=== PATIENT | female | born 1985 | race Caucasian/White ===

== ENCOUNTER 2024-12-24 11:25 | Emergency (ER) | payer OTHER, SELFPAY ==
[2024-12-24 11:31] VITALS: BP 124/91
--- NOTE | 2024-12-24 12:35 | ED.GENMED ---
History of Present Illness
General
Chief Complaint: Cough
Source: patient
Exam Limitations: none
Time Seen by Provider: 12/24/24 12:12
History of Present Illness
History of Present Illness:
See MDM
Past History
Past History
ED Past Medical History: None
ED Past Surgical History: None
Social History
Tobacco: Non-smoker
Alcohol: None
Phy Exam
Physical Exam
Physical Exam:
See MDM
Course
Orders/Labs/Results
Orders:
Orders
12/24/24 12:33
Dexamethasone Pf [Decadron] 10 mg PO NOW STA
Ipratropium/Albuterol Sulfate [Duoneb] 3 ml INH R NOW STA
Vital Signs
Initial and Last Documented VS:
Initial Vital Signs
Temp Pulse Resp BP Pulse Ox
100.1 F 116 16 124/91 92
12/24/24 11:31 12/24/24 11:31 12/24/24 11:31 12/24/24 11:31 12/24/24 11:31
Last Documented Vital Signs
Temp Pulse Resp BP Pulse Ox
100.1 F 116 16 124/91 92
12/24/24 11:31 12/24/24 11:31 12/24/24 11:31 12/24/24 11:31 12/24/24 12:37
MDM/Problems Addressed
Differential Diagnosis Includes:
HPI and MDM Narrative:
39-year-old female presenting with persistent cough and subjective fevers. She was recently diagnosed with pneumonia. Her daughter has the same symptoms. She is currently on a course of Augmentin but is concerned that she is not doing better
regardless that her daughter is doing much better. Patient has albuterol at home which she has been taking intermittently with minimal relief. On my exam, she has mild bronchospastic cough but no wheeze. We discussed low utility of chest x-ray
given that she is already on Augmentin and that her daughter with similar symptoms and same prescription is improving. We did discuss the possibility and likelihood of a viral syndrome. Patient feels comfortable with this plan. She recently had
COVID and influenza ruled out indicating that rechecking them is less helpful
Physical exam
General: Well appearing and non-toxic
HEENT: protecting airway
Neck: appears supple
CV: No evidence of cyanosis
Resp: No accessory muscle use. Lungs clear but bronchospastic cough noted
Abd: Non-distended
Extremities: No deformities
Neuro: alert
Psych: Normal affect
Skin: Intact
Problems Addressed including Acute and Chronic Conditions affecting care:
1. Bronchitis
Acuity: acute
Prognosis: stable
Details: Continue the Augmentin.-year-old chest x-ray clear lung velázquez. Will give dose of Decadron and DuoNeb
Differential Diagnosis (but not limited to): Pneumonia, bronchitis, viral syndrome
Testing considered: Chest x-ray
Drug therapy (if applicable): OTC meds, please see d/c instruction regarding Rx drugs
Amount and/or Complexity of Data Reviewed
Clinical info obtained from: Patient
External data reviewed: N/A
Labs I independently reviewed (but not limited to): N/A
Radiology: N/A
Pulse Ox: not hypoxic
EKG independently reviewed: N/A
Striper: N/A
Critical Care: N/A
Risk of Complication:
Social Determinants of health: Good social support
Discussed with other providers: N/A
Escalation of Care includes Admit/Obs: After being observed in the Emergency Department, pt stable for discharge.
Occasional wrong word or 'sound a like' substitutions may have occurred due to the inherent limitations of voice recognition software. Read the chart carefully and recognize, using context, where substitutions have occurred.
*Pulse Oximetry
SaO2: 92
Oxygen Mode of Delivery: Room air
Patient hypoxic: no
*Critical Care Note
Total Time (30-74mins, 75-104mins- exclusive of procedures): Not Applicable
ED Attending Note
-
Portions of this chart may have been created with voice recognition software.� Occasional wrong word or��sound alike� substitutions may have occurred due to the inherent limitations of voice recognition software.
Discharge Plan
Departure
Patient Disposition: Home (Routine Discharge)
Date of Disposition: 12/24/24
Time of Disposition: 12:38
Patient with high blood pressure during this ER visit?: No
Discharge Problem:
Acute bronchitis
Instructions: Acute Bronchitis, Adult (DC)
Prescriptions:
New
prednisone 20 mg tablet
40 mg PO DAILY Qty: 10 0RF
Referrals:
Fausto Brooks CRNP [Family Provider, General]
Activity Restrictions/Additional Instructions:
Please return for any worsening symptoms.
You may return at any time if you have further concerns.
Please follow up with your doctor at the first available appointment, preferably this week.
Please continue the Augmentin as already prescribed.
Thank you for choosing [facility].
Interventions
Interventions:
*Risk Screen - Suicide Last Done: 12/24/24 11:33
*General Assessment Last Done: 12/24/24 11:46
*Neglect/Abuse Screening Last Done: 12/24/24 11:33
*ED- Fall Risk Assessment Last Done: 12/24/24 11:46
*ED COVID-19 Vaccine History Last Done: 12/24/24 11:46
ED- Pulmonary Assessment Last Done: 12/24/24 11:46
Discharge Date and Time
Print Language: [id number]
[2024-12-24] MEDS: DUONEB 3 ML INH (12:43)
[2024-12-24] MEDS: DECADRON 10 MG PO (12:43)
== END 2024-12-24 13:14 | disposition home or self-care (01) ==
LOC: EMR 11:25
PROVIDERS: EMERGENCY PHYSICIAN Student in an Organized Health Care Education/Training Program; FAMILY PHYSICIAN Nurse Practitioner Primary Care
DX: J20.9 Acute bronchitis, unspecified (principal)
CPT/HCPCS: 94640; 99283